=== PATIENT | female | born 1990 | race Caucasian/White ===

== ENCOUNTER 2019-03-23 18:00 | Inpatient (IN) | payer OTHER ==
[~2019-03-23] VITALS: Ht 165.1 cm; Wt 91.4 kg
[~2019-03-23 18:00] MED LIST: DOCU-144 PO; FER325 PO; IBUP-1542 PO; PREN1TAB49 PO
[2019-03-24 06:02] VITALS: Ht 165.1 cm; Wt 91.4 kg
[2019-03-24 06:17] VITALS: BP 130/80; PULSE 113; RESP 18
[2019-03-24] MEDS: LACTATED RINGER'S 1,000 ML IV SCH ×3 (06:20→18:33)
[2019-03-24] MEDS ORDERED: OXYTOCIN 30 UNITS/LR 500 ML IV PRN (06:30)
[2019-03-24] MEDS ORDERED: CARBOPROST 250 MCG INJ IM PRN (06:30)
[2019-03-24] MEDS ORDERED: METHYLERGONOVINE 0.2 MG INJ IM PRN (06:30)
[2019-03-24] MEDS ORDERED: OXYTOCIN 30 UNITS/LR 500 ML IV SCH (06:30)
[2019-03-24] MEDS ORDERED: MISOPROSTOL 200 MCG TAB PR PRN ×2 (06:30→08:30)
[2019-03-24] MEDS ORDERED: CEFAZOLIN 2 GM/50 ML (PMX) 50 ML IVPB SCH (06:30)
[2019-03-24] MEDS ORDERED: LACTATED RINGER'S 1,000 ML IV SCH (08:28)
[2019-03-24] MEDS ORDERED: LANOLIN HPA 1 PKT TOP PRN (08:30)
[2019-03-24] MEDS ORDERED: OXYCODONE/ACETAMINOPHEN (5/325) TAB PO PRN ×2 (08:30)
[2019-03-24] MEDS ORDERED: NA PHOSPHATE/BIPHOS 133 ML ENEMA PR PRN (08:30)
[2019-03-24] MEDS ORDERED: FENTAnyl 50 MCG/ML VIAL ONE (09:00)
[2019-03-24] MEDS: SENNA/DOCUSATE NA (8.6MG/50MG) TAB PO SCH ×2 (09:00→21:48)
[2019-03-24] MEDS ORDERED: ONDANSETRON 4 MG INJ ONE (09:14)
[2019-03-24] MEDS ORDERED: OXYTOCIN 30 UNITS/LR 500 ML IV ONE (09:27)
[2019-03-24] MEDS ORDERED: PHENYLephrine (100 MCG/ML) 10ML SYG ONE ×2 (09:27→09:40)
[2019-03-24] MEDS ORDERED: METOCLOPRAMIDE 10 MG INJ ONE (09:27)
[2019-03-24] MEDS ORDERED: EPHEDrine 25 MG/5 ML SYG ONE ×2 (09:27→09:40)
[2019-03-24] MEDS ORDERED: ONDANSETRON 4 MG INJ IV PRN (11:30)
[2019-03-24] MEDS ORDERED: TRIMETHOBENZAMIDE 100 MG/ML VIAL IM PRN (11:30)
[2019-03-24] MEDS ORDERED: NALBUPHINE HCL (10 MG/1 ML) INJ IV PRN (11:30)
[2019-03-24] MEDS ORDERED: DIPHENHYDRAMINE 50 MG INJ IV PRN (11:30)
[2019-03-24] MEDS ORDERED: morphine 2 MG INJ IV PRN ×2 (11:30)
[2019-03-24] MEDS ORDERED: NALOXONE (0.4 MG/ML) INJ IV PRN (11:30)
[2019-03-24] MEDS: KETOROLAC 30 MG INJ IV PRN ×3 (11:48→22:44)
[2019-03-24 12:50] VITALS: BP 105/53; PULSE 72; RESP 17
[2019-03-24 15:55] VITALS: BP 123/60; PULSE 77; RESP 18
[2019-03-24 20:40] VITALS: BP 113/57; PULSE 76; RESP 18
[2019-03-25] VITALS: BP 130/59; PULSE 85; RESP 17
[2019-03-25] MEDS: LACTATED RINGER'S 1,000 ML IV SCH (02:51)
[2019-03-25 04:00] VITALS: BP 112/56; PULSE 69; RESP 19
[2019-03-25] MEDS: KETOROLAC 30 MG INJ IV PRN (04:58)
[2019-03-25 08:33] VITALS: BP 111/55; PULSE 81; RESP 18
[2019-03-25] MEDS: SENNA/DOCUSATE NA (8.6MG/50MG) TAB PO SCH ×2 (10:13→21:00)
[2019-03-25 10:56] VITALS: BP 134/69; PULSE 80; RESP 17
[2019-03-25 16:00] VITALS: BP 114/57; PULSE 67; RESP 16
[2019-03-25] MEDS: IBUPROFEN 600 MG TAB PO SCH ×3 (16:05→23:03)
[2019-03-25 19:35] VITALS: BP 117/56; PULSE 73; RESP 19
[2019-03-26 03:15] VITALS: BP 116/56; PULSE 68; RESP 18
[2019-03-26] MEDS: IBUPROFEN 600 MG TAB PO SCH ×3 (05:15→18:00)
[2019-03-26 08:30] VITALS: BP 123/61; PULSE 79; RESP 14
[2019-03-26] MEDS: SENNA/DOCUSATE NA (8.6MG/50MG) TAB PO SCH ×2 (09:00→21:00)
[2019-03-26 16:10] VITALS: BP 117/61; PULSE 75; RESP 17
[2019-03-26 20:00] VITALS: BP 116/59; PULSE 78; RESP 20
[2019-03-27] VITALS (8 sets, daily range): BP systolic 108–134; BP diastolic 54–71; PULSE 57–82; RESP 16–18
[2019-03-27] MEDS: IBUPROFEN 600 MG TAB PO SCH ×4 (01:59→18:50)
[2019-03-27] MEDS ORDERED: MEASLES,MUMPS,RUBELLA VACCINE INJ SC* ONE (09:00)
[2019-03-27] MEDS: SENNA/DOCUSATE NA (8.6MG/50MG) TAB PO SCH (09:00)
[2019-03-27] MEDS ORDERED: DIPHTH/TET/ACEL PERTUSS (ADULT) 0.5 ML VIAL IM* ONE (09:00)
[2019-03-27] MEDS ORDERED: FERROUS SULFATE (EC) 325 MG TAB PO ONE (18:00)
[2019-03-27] MEDS ORDERED: ASCORBIC ACID 500 MG TAB PO SCH (18:00)
== END 2019-03-27 20:50 | disposition home or self-care (01) | DRG 787 ==
LOC: L-D 03-24 05:50 → PP1 03-24 12:30
PROVIDERS: ADMIT Specialist; ATTEND Specialist
PROC: 3E033VJ Introduction of Other Hormone into Peripheral Vein, Percutaneous Approach (ICD-10-PCS; 2019-03-24)
PROC: 10D00Z1 Extraction of Products of Conception, Low, Open Approach (ICD-10-PCS; principal; 2019-03-24 07:30)
DX: O65.5 Obstructed labor due to abnormality of maternal pelvic organs (principal); D62 Acute posthemorrhagic anemia; O34.211 Maternal care for low transverse scar from previous cesarean delivery; Z3A.39 39 weeks gestation of pregnancy; Z37.0 Single live birth; O90.81 Anemia of the puerperium
CPT/HCPCS: 85025; 85610; 85730; 86592; 86850; 86900; 86901; 87340; 99464; J0690; J1885; J2270; J2370; J2405; J2590; J2765; J3010; J7120